=== PATIENT | male | born 1950 | race Caucasian/White ===

== ENCOUNTER 2020-01-05 11:16 | Emergency (ER) | payer OTHER ==
[~2020-01-05] VITALS: Ht 182.9 cm; Wt 113.4 kg
[~2020-01-05 11:16] MED LIST: ASPI81CH PO; ATOR40TA PO; CLIN300 PO; INVOKANA300 MG PO; Janumet 50-1,01 EACH PO; Janumet 50-5001 EACH; LEVO750 PO; Prinivil10 MG PO; Travatan Z5 ML OP
[2020-01-05 12:20] LABS: BASOPHILS ABSOLUTE AUTO 0.04 K/mm3 (0.00-0.23); BASOPHILS PERCENT AUTO 1 % (0-2); EOSINOPHILS ABSOLUTE AUTO 0.01 K/mm3 (0.00-0.68); EOSINOPHILS PERCENT AUTO 0 % (0-6); Hematocrit 48.4 % (37.0-53.0); IMMATURE GRAN ABSOLUTE AUTO 0.05 K/mm3 (0.00-0.10); IMMATURE GRAN PERCENT AUTO 1 % (0-1); LYMPHOCYTES ABSOLUTE AUTO 0.84 K/mm3 (0.84-5.20); LYMPHOCYTES PERCENT AUTO 12 % (21-46); MONOCYTES ABSOLUTE AUTO 0.64 K/mm3 (0.16-1.47); MONOCYTES PERCENT AUTO 9 % (4-13); Mean Corpuscular HGB 30.7 pg (26.0-34.0); Mean Corpuscular HGB Conc 33.1 g/dL (31.5-36.5); Mean Corpuscular Volume 93 fL (80-100); Mean Platelet Volume 9.9 fL (9.1-12.4); NEUTROPHILS ABSOLUTE AUTO 5.49 K/mm3 (1.96-9.15); NEUTROPHILS PERCENT AUTO 78 % (41-73); Platelet Count 216 K/mm3 (150-400); RDW Coefficient Variation 12.6 % (11.7-14.2); RDW Standard Deviation 43.2 fL (35.1-46.3); Red Blood Cell Count 5.22 M/mm3 (4.30-5.90); White Blood Cell Count 7.07 K/mm3 (4.00-11.30)
[2020-01-05 12:39] LABS: Alanine Aminotransfer (ALT/SGP 36 U/L (12-78); Albumin, Blood 3.4 g/dL (3.4-5.0); Albumin/Globulin Ratio 0.9 (0.8-1.8); Alk Phos 90 U/L (50-136); Anion Gap 6 mmol/L (6-16); Aspartate Aminotrans (AST/SGOT 33 U/L (12-37); Blood Urea Nitrogen 17 mg/dL (8-24); Bun/Creatinine Ratio 21.7 (12.0-20.0); CO2, Blood 25 mmol/L (21-32); Calcium, Blood 8.7 mg/dL (8.5-10.1); Chloride, Blood 101 mmol/L (98-108); Creatinine, Blood 0.78 mg/dL (0.60-1.20); Globulin, Blood 3.9 g/dL (2.2-4.0); Glomerular Filtration Rate >60 (60-); Glucose, Blood 160 mg/dL (70-99); Sodium, Blood 132 mmol/L (136-145); Total Protein, Blood 7.3 g/dL (6.4-8.2)
== END 2020-01-05 13:15 | disposition home or self-care (01) ==
LOC: ER 11:16
PROVIDERS: Physician Assistant
DX: L03.116 Cellulitis of left lower limb (principal); E11.621 Type 2 diabetes mellitus with foot ulcer; L97.529 Non-pressure chronic ulcer of other part of left foot with unspecified severity; E11.40 Type 2 diabetes mellitus with diabetic neuropathy, unspecified; Z88.0 Allergy status to penicillin; Z79.82 Long term (current) use of aspirin; Z79.899 Other long term (current) drug therapy
CPT/HCPCS: 36415; 80053; 83605; 85025; 99283

== ENCOUNTER 2022-04-02 17:34 | Emergency (ER) | payer OTHER ==
[~2022-04-02] VITALS: Ht 182.9 cm; Wt 113.4 kg
[2022-04-02 18:41] LABS: BASOPHILS ABSOLUTE AUTO 0.03 K/mm3 (0.00-0.23); BASOPHILS PERCENT AUTO 0 % (0-2); EOSINOPHILS ABSOLUTE AUTO 0.09 K/mm3 (0.00-0.68); EOSINOPHILS PERCENT AUTO 1 % (0-6); Hematocrit 47.5 % (37.0-53.0); Hemoglobin 15.8 g/dL (13.5-17.5); IMMATURE GRAN ABSOLUTE AUTO 0.05 K/mm3 (0.00-0.10); IMMATURE GRAN PERCENT AUTO 0 % (0-1); LYMPHOCYTES ABSOLUTE AUTO 1.64 K/mm3 (0.84-5.20); LYMPHOCYTES PERCENT AUTO 15 % (21-46); MONOCYTES ABSOLUTE AUTO 1.35 K/mm3 (0.16-1.47); MONOCYTES PERCENT AUTO 12 % (4-13); Mean Corpuscular HGB 30.6 pg (26.0-34.0); Mean Corpuscular HGB Conc 33.3 g/dL (31.5-36.5); Mean Corpuscular Volume 92 fL (80-100); Mean Platelet Volume 9.9 fL (9.1-12.4); NEUTROPHILS ABSOLUTE AUTO 8.15 K/mm3 (1.96-9.15); NEUTROPHILS PERCENT AUTO 72 % (41-73); Platelet Count 214 K/mm3 (150-400); RDW Coefficient Variation 13.2 % (11.7-14.2); RDW Standard Deviation 45.1 fL (35.1-46.3); Red Blood Cell Count 5.17 M/mm3 (4.30-5.90); White Blood Cell Count 11.31 K/mm3 (4.00-11.30)
[2022-04-02 19:35] LABS: Albumin, Blood 3.4 g/dL (3.4-5.0); Albumin/Globulin Ratio 0.8 (0.8-1.8); Bilirubin, Total 0.7 mg/dL (0.1-1.0); Bun/Creatinine Ratio 24.2 (12.0-20.0); Creatinine, Blood 0.66 mg/dL (0.60-1.20); Potassium, Blood 4.5 mmol/L (3.5-5.5); Total Protein, Blood 7.4 g/dL (6.4-8.2)
[2022-04-02] MEDS ORDERED: LEVFLO500 PO (22:19)
[2022-04-02] MEDS ORDERED: CLIN150 PO (22:19)
== END 2022-04-02 22:31 | disposition home or self-care (01) ==
LOC: ER 17:34
PROVIDERS: Student in an Organized Health Care Education/Training Program
DX: L03.031 Cellulitis of right toe (principal); E11.9 Type 2 diabetes mellitus without complications; Z88.0 Allergy status to penicillin; Z79.899 Other long term (current) drug therapy; Z79.82 Long term (current) use of aspirin
CPT/HCPCS: 36415; 73630; 80053; 85025; A9270

== ENCOUNTER 2022-04-10 06:09 | Day surgery (SDC) | payer MEDICARE ==
[~2022-04-10] VITALS: Ht 182.9 cm; Wt 110.8 kg
[~2022-04-10 06:09] MED LIST changes: +CLIN150 PO; +LEVFLO500 PO
[2022-04-10] MEDS ORDERED: JARDIANCE10 MG (06:58)
--- NOTE | 2022-04-10 08:06 | NUR ---
04/10/22 0806 FELIX HARDIN PT PLACED ON 10L O2 PER FACE TENT SHORTLY AFTER COMING TO PACU. O2 UPPER 80'S . O2 CURRENTLY 95% ON 10 L
--- NOTE | 2022-04-10 08:24 | NUR ---
04/10/22 0824 FELIX HARDIN FINISHED IV PIGGY BACK- ABX
== END 2022-04-10 09:37 | disposition home or self-care (01) ==
LOC: ORSCSDS 06:09
PROVIDERS: Podiatrist Foot & Ankle Surgery
PROC: 0L8N0ZZ Division of Right Lower Leg Tendon, Open Approach (ICD-10-PCS; principal; 2022-04-10 07:30)
DX: M24.571 Contracture, right ankle (principal); E11.621 Type 2 diabetes mellitus with foot ulcer; E11.65 Type 2 diabetes mellitus with hyperglycemia; Z79.4 Long term (current) use of insulin; E11.42 Type 2 diabetes mellitus with diabetic polyneuropathy; E78.00 Pure hypercholesterolemia, unspecified; I10 Essential (primary) hypertension; Z87.891 Personal history of nicotine dependence; H40.10X0 Unspecified open-angle glaucoma, stage unspecified; Z79.899 Other long term (current) drug therapy; Z79.82 Long term (current) use of aspirin; E66.9 Obesity, unspecified; Z68.34 Body mass index [BMI] 34.0-34.9, adult
CPT/HCPCS: 82947; A9270; J0171; J1100; J1885; J2250; J2405; J2704; J3010; J3370; J7060; J7120

== ENCOUNTER 2022-07-14 10:30 | Emergency (ER) | payer MEDICARE ==
[~2022-07-14] VITALS: Ht 182.9 cm; Wt 114.3 kg
[~2022-07-14 10:30] MED LIST changes: +JARDIANCE10 MG
[2022-07-14 11:04] LABS: BASOPHILS ABSOLUTE AUTO 0.02 K/mm3 (0.00-0.23); BASOPHILS PERCENT AUTO 0 % (0-2); EOSINOPHILS PERCENT AUTO 0 % (0-6); Hematocrit 45.8 % (37.0-53.0); Hemoglobin 15.5 g/dL (13.5-17.5); IMMATURE GRAN ABSOLUTE AUTO 0.03 K/mm3 (0.00-0.10); IMMATURE GRAN PERCENT AUTO 0 % (0-1); LYMPHOCYTES ABSOLUTE AUTO 0.52 K/mm3 (0.84-5.20); LYMPHOCYTES PERCENT AUTO 5 % (21-46); MONOCYTES ABSOLUTE AUTO 1.53 K/mm3 (0.16-1.47); MONOCYTES PERCENT AUTO 14 % (4-13); Mean Corpuscular HGB 29.8 pg (26.0-34.0); Mean Corpuscular HGB Conc 33.8 g/dL (31.5-36.5); Mean Corpuscular Volume 88 fL (80-100); NEUTROPHILS ABSOLUTE AUTO 9.01 K/mm3 (1.96-9.15); NEUTROPHILS PERCENT AUTO 81 % (41-73); Platelet Count 218 K/mm3 (150-400); RDW Coefficient Variation 13.6 % (11.7-14.2); RDW Standard Deviation 43.4 fL (35.1-46.3); White Blood Cell Count 11.11 K/mm3 (4.00-11.30)
[2022-07-14 11:37] LABS: Albumin, Blood 2.8 g/dL (3.4-5.0); Albumin/Globulin Ratio 0.7 (0.8-1.8); Bilirubin, Total 0.9 mg/dL (0.1-1.0); Bun/Creatinine Ratio 17.4 (12.0-20.0); Calcium, Blood 8.6 mg/dL (8.5-10.1); Creatinine, Blood 0.75 mg/dL (0.60-1.20); Globulin, Blood 4.3 g/dL (2.2-4.0); Potassium, Blood 3.6 mmol/L (3.5-5.5); Total Protein, Blood 7.1 g/dL (6.4-8.2)
[2022-07-14 11:57] LABS: Influenza A, PCR NEGATIVE (NEGATIVE); Influenza B, PCR NEGATIVE (NEGATIVE); Resp Syncytial Virus, PCR NEGATIVE (NEGATIVE); SARS-Cov-2 (COVID-19) PCR, MMC NEGATIVE (NEGATIVE)
== END 2022-07-14 14:34 | disposition home or self-care (01) ==
LOC: ER 10:30
PROVIDERS: Student in an Organized Health Care Education/Training Program
DX: B34.9 Viral infection, unspecified (principal); E87.1 Hypo-osmolality and hyponatremia; E11.40 Type 2 diabetes mellitus with diabetic neuropathy, unspecified; Z20.822 Contact with and (suspected) exposure to COVID-19; Z88.0 Allergy status to penicillin; Z79.899 Other long term (current) drug therapy; Z79.82 Long term (current) use of aspirin
CPT/HCPCS: 0241U; 36415; 71046; 71260; 80053; 83880; 84484; 85025; 93005; 93010; Q9967

== ENCOUNTER 2022-07-24 08:40 | Day surgery (SDC) | payer MEDICARE ==
[~2022-07-24] VITALS: Ht 182.9 cm; Wt 106.2 kg
--- NOTE | 2022-07-24 09:37 | NUR ---
[facility] in [facility] warming gown applied. Surgical site prepped with 2% Chlorhexidine cloth wipe. History, Chart, Medications and Allergies reviewed before start of procedure.History, Chart, Medications and Allergies reviewed before start of procedure.Lungs clear T/O to Auscultation. Patient confirms NPO status and agrees with scheduled surgery. Pre-Op teaching done. Pt verbalizes understanding. Patient States Post-Procedure ride home has been arranged. Patient reports completing Chlorhexadine shower X2 prior to admission to hospital.
--- NOTE | 2022-07-24 11:50 | NUR ---
PT AXOX4, ABLE TO REPOSITION SELF IN BED. PT TOLERATING PO FLUIDS AND FOOD, VISITING WITH AT BEDSIDE. PT HAS RIGHT OPERATIVE FOOT WRAPPED IN CHRIS BANDAGE WRAP THAT IS CDI.
--- NOTE | 2022-07-24 12:21 | NUR ---
Discharge instructions reviewed with patient. Patient verbalizes understanding. Copy given to patient to take home. Dressing to procedure site clean, dry, intact with no visible drainage, swelling, erythema or bruising noted. Patient States Post-Procedure ride home has been arranged. Discharged via wheelchair to private car for ride home. ALL BELONGINGS RETURNED TO PATIENT.
== END 2022-07-24 23:07 | disposition home or self-care (01) ==
LOC: ORSCMMR 08:40 → ORD 10:00 → ORSCMMR 23:07
PROVIDERS: Podiatrist Foot & Ankle Surgery
PROC: 0Y6M0ZC Detachment at Right Foot, Partial 3rd Ray, Open Approach (ICD-10-PCS; principal; 2022-07-24 10:00)
DX: L03.115 Cellulitis of right lower limb (principal); I10 Essential (primary) hypertension; E11.9 Type 2 diabetes mellitus without complications; E78.5 Hyperlipidemia, unspecified; Z79.85 Long-term (current) use of injectable non-insulin antidiabetic drugs; E66.9 Obesity, unspecified; Z68.32 Body mass index [BMI] 32.0-32.9, adult; Z79.899 Other long term (current) drug therapy
CPT/HCPCS: 82947; 87070; 87071; 87075; 87077; 87186; 87205; A9270; J1100; J2250; J2405; J2704; J2795; J3010; J7120

== ENCOUNTER 2022-07-25 23:18 | Emergency (ER) | payer MEDICARE ==
[~2022-07-25] VITALS: Ht 182.9 cm; Wt 103.9 kg
== END 2022-07-26 01:45 | disposition home or self-care (01) ==
LOC: ER 23:18
DX: M25.511 Pain in right shoulder (principal); E11.9 Type 2 diabetes mellitus without complications; Z88.0 Allergy status to penicillin; Z79.899 Other long term (current) drug therapy; Z79.82 Long term (current) use of aspirin
CPT/HCPCS: 73030; 93005; 93010; 96372; 99284-25; J1170

== ENCOUNTER 2022-07-26 12:56 | Inpatient (IN) | payer MEDICARE ==
[~2022-07-26] VITALS: Ht 182.9 cm; Wt 111.5 kg
[2022-07-26 14:16] LABS: Albumin, Blood 2.3 g/dL (3.4-5.0); Albumin/Globulin Ratio 0.5 (0.8-1.8); Bun/Creatinine Ratio 17.8 (12.0-20.0); Calcium, Blood 8.5 mg/dL (8.5-10.1); Creatinine, Blood 0.56 mg/dL (0.60-1.20); Globulin, Blood 4.6 g/dL (2.2-4.0); Potassium, Blood 3.8 mmol/L (3.5-5.5); Total Protein, Blood 6.9 g/dL (6.4-8.2)
[2022-07-26 14:37] LABS: Hematocrit 41.6 % (37.0-53.0); Hemoglobin 13.5 g/dL (13.5-17.5); Mean Corpuscular HGB 29.3 pg (26.0-34.0); Mean Corpuscular HGB Conc 32.5 g/dL (31.5-36.5); Mean Corpuscular Volume 90 fL (80-100); Mean Platelet Volume 9.1 fL (9.1-12.4); Platelet Count 483 K/mm3 (150-400); RDW Coefficient Variation 14.4 % (11.7-14.2); RDW Standard Deviation 47.7 fL (35.1-46.3); Red Blood Cell Count 4.61 M/mm3 (4.30-5.90); White Blood Cell Count 23.06 K/mm3 (4.00-11.30)
[2022-07-26 14:49] LABS: Influenza A, PCR NEGATIVE (NEGATIVE); Influenza B, PCR NEGATIVE (NEGATIVE); Resp Syncytial Virus, PCR NEGATIVE (NEGATIVE); SARS-Cov-2 (COVID-19) PCR, MMC NEGATIVE (NEGATIVE)
[2022-07-26 15:34] LABS: Source, Urine Clean Catch
[2022-07-26 15:49] LABS: BAND PERCENT MAN 7 % (0-8); BASOPHILS PERCENT MAN 0 % (0-2); EOSINOPHILS PERCENT MAN 0 % (0-6); LYMPHOCYTES ABSOLUTE MAN 1.38 K/mm3 (0.84-5.20); LYMPHOCYTES PERCENT MAN 6 % (21-46); MONOCYTES ABSOLUTE MAN 1.38 K/mm3 (0.16-1.47); MONOCYTES PERCENT MAN 6 % (4-13); NEUTROPHILS ABSOLUTE MAN 20.75 K/mm3 (1.96-9.15); SEG NEUTROPHILS PERCENT MAN 83 % (41-73); TOTAL CELLS COUNTED 200
[2022-07-26 16:01] LABS: Appearance, Urine Clear (Clear); Bilirubin, Urine Neg (Neg); Blood, Urine 1+ (Neg); Color, Urine Yellow (P-Yellow); Glucose Qualitative, Urine 4+ (Neg); Ketones, Urine 4+ (Neg); Leukocyte Esterase, Urine Neg (Neg); Nitrite, Urine Neg (Neg); Protein, Urine 1+ (Neg); Urobilinogen, Urine NORM (Normal)
[2022-07-26 16:49] LABS: Bacteria Mod /hpf; Red Blood Cells, Urine 0-2 /hpf (0-2); Squamous Epithelial Cells Rare /hpf (Few); White Blood Cells, Urine 0-2 /hpf (0-5)
--- NOTE | 2022-07-27 01:36 | NUR ---
ADMIT NOTE; PT ARRIVED TO ROOM 306 AT 2007 ON 07/26/22 VIA GURNEY FROM ED. PT WAS TRANSFERED FROM [facility] TO HOSPITAL BED VIA SLIDE SHEET. PT ARRIVED ON 2L O2, REPORTED THAT HE HAD PREVIOUSLY BEEN SATING 94%, HOWEVER UPON ARRIVAL PT SATING 100%, O2 REMOVED. PTS BASELINE IS RA. PTS WAS PRESENT AT BEDSIDE AT TIME OF ARRIVAL. 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 PT AXO X4, ABLE TO ANSWER QUESTIONS. PTS R TOE AMPUTATIONS WRAPPED, THEREFORE REPORT OF WHAT THE SURGICAL SIGHT LOOKS LIKE IS PER ED NURSE. PT REPORTED NO PAIN UPON ARRIVAL. PT ORIENTATED TO ROOM, INSTRUCTED ON USE OF CALL LIGHT. BED IS IN THE LOWEST POSITION.
[2022-07-27 04:24] LABS: BASOPHILS ABSOLUTE AUTO 0.04 K/mm3 (0.00-0.23); BASOPHILS PERCENT AUTO 0 % (0-2); EOSINOPHILS PERCENT AUTO 0 % (0-6); Hemoglobin 13.3 g/dL (13.5-17.5); IMMATURE GRAN PERCENT AUTO 1 % (0-1); LYMPHOCYTES ABSOLUTE AUTO 0.83 K/mm3 (0.84-5.20); LYMPHOCYTES PERCENT AUTO 5 % (21-46); MONOCYTES ABSOLUTE AUTO 1.29 K/mm3 (0.16-1.47); MONOCYTES PERCENT AUTO 8 % (4-13); Mean Corpuscular HGB 29.7 pg (26.0-34.0); Mean Corpuscular HGB Conc 32.4 g/dL (31.5-36.5); Mean Corpuscular Volume 92 fL (80-100); Mean Platelet Volume 9.1 fL (9.1-12.4); NEUTROPHILS ABSOLUTE AUTO 14.54 K/mm3 (1.96-9.15); NEUTROPHILS PERCENT AUTO 87 % (41-73); Platelet Count 439 K/mm3 (150-400); RDW Coefficient Variation 14.6 % (11.7-14.2); Red Blood Cell Count 4.48 M/mm3 (4.30-5.90)
[2022-07-27 04:43] LABS: Bun/Creatinine Ratio 26.1 (12.0-20.0); Calcium, Blood 8.2 mg/dL (8.5-10.1); Creatinine, Blood 0.5 mg/dL (0.60-1.20); Potassium, Blood 3.9 mmol/L (3.5-5.5)
--- NOTE | 2022-07-27 06:43 | NUR ---
SHIFT SUMMARY; PT ARRIVED TO FLOOR LAST NIGHT AT 2007. PT IN NO ACUTE DISTRESS. NO ACUTE MEDICAL CHANGES THROUGHOUT THE NIGHT. PT WITH POSSIBLE POST OP INFECTION FROM R TRANSMETATARSAL AMPUTATION 07/24. PT HAS NS RUNNING AT 150 ML/HR CURRENTLY. PT BEING GIVEN VANCO AND ROCEPHIN. PT IS AX0 X4. PT HAS A CONSULT WITH DR. JAMIL TODAY. PT WAS PLEASANT AND COOPERATIVE OF CARE THROUGHOUT THE NIGHT. PT USED CALL LIGHT APPROPRIATELY. PT USES THE URINAL, PT IS A 2 PERSON ASSIST WITH A FFW TO THE BEDSIDE COMMODE, PT PIVOTS ON THE L LEG TO DO SO, PT WITH R SHOULDER PAIN UPON MOVEMENT. PT CURRENLTY RESTING IN BED WITH THE BED IN THE LOWEST POSITION AND THE CALL LIGHT AT BEDSIDE.
--- NOTE | 2022-07-27 18:40 | NUR ---
PATIENT IS ALERT AND ORIENTED AND COOPERATIVE WITH CARE. NO PAIN IN RIGHT FOOT. C/O PAIN 3/10 IN RIGHT SHOULDER. PLAN IS FOR US GUIDED ASPIRATION OF FLUID FROM RIGHT SHOULDER TOMORROW. PATIENT HAD A BM TODAY. 1-2 PA WITH FWW. NON WEIGHTBEARING ON RIGHT FOOT. DR. JAMIL SAW THE PATIENT TODAY AND REDRESSED HIS RIGHT FOOT WOUND. NS AT 150 ML/HR. TYLENOL IS MANAGING HIS PAIN. WILLL CONTINUE TO MONITOR
[2022-07-28 04:40] LABS: Hematocrit 38.3 % (37.0-53.0); Hemoglobin 12.3 g/dL (13.5-17.5); Mean Corpuscular HGB 29.1 pg (26.0-34.0); Mean Corpuscular HGB Conc 32.1 g/dL (31.5-36.5); Mean Corpuscular Volume 91 fL (80-100); Platelet Count 410 K/mm3 (150-400); RDW Coefficient Variation 14.8 % (11.7-14.2); RDW Standard Deviation 49.7 fL (35.1-46.3); Red Blood Cell Count 4.22 M/mm3 (4.30-5.90); White Blood Cell Count 13.41 K/mm3 (4.00-11.30)
[2022-07-28 05:02] LABS: Vancomycin, Trough 6.7 ug/mL (5.0-10.0)
[2022-07-28 05:10] LABS: Albumin, Blood 1.8 g/dL (3.4-5.0); Anion Gap 8 mmol/L (6-16); Blood Urea Nitrogen 12 mg/dL (8-24); Bun/Creatinine Ratio 24.8 (12.0-20.0); CO2, Blood 24 mmol/L (21-32); Calcium, Blood 7.9 mg/dL (8.5-10.1); Chloride, Blood 105 mmol/L (98-108); Creatinine, Blood 0.48 mg/dL (0.60-1.20); Glomerular Filtration Rate 108 (60-); Glucose, Blood 124 mg/dL (70-99); Potassium, Blood 3.6 mmol/L (3.5-5.5); Sodium, Blood 137 mmol/L (136-145)
--- NOTE | 2022-07-28 16:39 | NUR ---
SHIFT SUMMARY PATIENT MEDICATED FOR PAIN X1, PATIENT DENIES NAUSEA AND SHORTNESS OF BREATH. PATIENT IS A 1P WITH A FWW. PATIENT IS NWB ON THE RIGHT FOOT. PATIENT HAS AT BEDSIDE FOR MOST OF SHIFT. PATIENT SLEPT ON AND OFF. DR. CADET SAW PATIENT, CHANGED BANDAGE, NEW ORDERS FOR DAILY DRY DRESSING CHANGES. ULTRASOUND CONSULTED FOR POSSIBLE ASPIRATION, NOT ENOUGH FLUID IN SHOULDER. PATIENT REPORTS SHOULDER FEELING BETTER TODAY, MORE RANGE OF MOTION. PATIENT IS EATING AND DRINKING WELL. PATIENT IS VERY PLEASANT AND COOPERATIVE WITH CARE.
--- NOTE | 2022-07-29 04:42 | NUR ---
SUMMARY NO NEW ISSUE NOTED. DR CADET CHANGED DRESSING TODAY. PT PAIN MANAGED WELL WITH TYLENOL. PT HAD A SHOWER AND REPORTS FEELING BETTER. PT HAS BEEN VOIDING WELL AND TAKING IN PO FLUIDS. PT SLEEPING WELL AND IN NO DISTRESS. CALL LIGHT IN REACH.
[2022-07-29 05:39] LABS: Vancomycin, Trough 8.2 ug/mL (5.0-10.0)
--- NOTE | 2022-07-29 13:27 | NUR ---
PATIENT TO [facility]ART [facility] VIA W/C WITH HEART CENTER RN.
--- NOTE | 2022-07-29 17:05 | NUR ---
REPORT CALLED TO LISSET JOSEPH RN IN PCU
--- NOTE | 2022-07-29 17:23 | NUR ---
Shift Summary Pt has been resting in bed since arrival. Pt has stated an understanding of post-operative activity restrictions and has made no attempts to move. Left groin site is clean, dry, intact, non-tender, and with no hematoma palpated. Pt stated a 3/10 pain to the right shoulder and a 2/10 pain to the right foot. Right lower extremity distal pulses are present, posterior tibial is palpable and strong, dorsalis pedis is easily located with doppler. Vital signs have been stable and no acute changes in condition occurred.
--- NOTE | 2022-07-29 19:38 | NUR ---
CARE ASSUMPTION: PATIENT A&O, GROIN SITE C/D/I W/O TENDERNESS OR HEMATOMA. BLE PULSES BY DOPPLER. BED ELEVATED 10-DEGREES. R FOOT DRESSING C/D/I. CALL LIGHT IN REACH.
--- NOTE | 2022-07-30 05:20 | NUR ---
SHIFT SUMMARY: ANGIO SITE C/D/I SANS HEMATOMA, TENDERNESS, OR OOZING. R FOOT DRESSING C/D/I. PATIENT VSS ON RA. DENIES CHEST PAIN OR SOB - HAS CHRONIC SHOULDER PAIN. MEDICATED PER EMAR. BED LOW AND MAINTAINED HOB <20* PER ORDERS. PLEASANT AND COOPERATIVE WITH CARE. CALL LIGHT IN REACH AND CALL APPROPRIATELY. WILL CONTINUE TO MONITOR UNTIL REPORT TO DAY RN.
[2022-07-30] MEDS ORDERED: OXYC5 PO (12:36)
[2022-07-30 12:37] LABS: BASOPHILS ABSOLUTE AUTO 0.04 K/mm3 (0.00-0.23); BASOPHILS PERCENT AUTO 0 % (0-2); EOSINOPHILS ABSOLUTE AUTO 0.13 K/mm3 (0.00-0.68); EOSINOPHILS PERCENT AUTO 1 % (0-6); Hemoglobin 12.6 g/dL (13.5-17.5); IMMATURE GRAN ABSOLUTE AUTO 0.05 K/mm3 (0.00-0.10); IMMATURE GRAN PERCENT AUTO 1 % (0-1); LYMPHOCYTES ABSOLUTE AUTO 1.17 K/mm3 (0.84-5.20); LYMPHOCYTES PERCENT AUTO 12 % (21-46); MONOCYTES ABSOLUTE AUTO 0.93 K/mm3 (0.16-1.47); MONOCYTES PERCENT AUTO 10 % (4-13); Mean Corpuscular HGB 29.6 pg (26.0-34.0); Mean Corpuscular HGB Conc 32.3 g/dL (31.5-36.5); Mean Corpuscular Volume 92 fL (80-100); Mean Platelet Volume 9.4 fL (9.1-12.4); NEUTROPHILS ABSOLUTE AUTO 7.52 K/mm3 (1.96-9.15); NEUTROPHILS PERCENT AUTO 76 % (41-73); Platelet Count 389 K/mm3 (150-400); RDW Coefficient Variation 14.6 % (11.7-14.2); RDW Standard Deviation 49.3 fL (35.1-46.3); Red Blood Cell Count 4.25 M/mm3 (4.30-5.90); White Blood Cell Count 9.84 K/mm3 (4.00-11.30)
[2022-07-30] MEDS ORDERED: XARELTO20 MG PO (12:38)
[2022-07-30] MEDS ORDERED: XARELTO15 M1 PO (12:38)
[2022-07-30] MEDS ORDERED: VISBIOME 112.51 EACH PO (12:39)
[2022-07-30] MEDS ORDERED: LEVFLO500 PO (12:39)
== END 2022-07-30 13:40 | disposition home health service (06) | DRG 981 ==
LOC: ER 12:56 → PCU 18:16 → MEDS 18:16 → PCU 07-29 14:41
PROVIDERS: Internal Medicine; Nurse Practitioner Acute Care; Podiatrist Foot & Ankle Surgery; Student in an Organized Health Care Education/Training Program; ADMIT Internal Medicine
PROC: 3E03329 Introduction of Other Anti-infective into Peripheral Vein, Percutaneous Approach (ICD-10-PCS; principal; 2022-07-26)
PROC: B41G1ZZ Fluoroscopy of Left Lower Extremity Arteries using Low Osmolar Contrast (ICD-10-PCS; 2022-07-29)
PROC: 047P3ZZ Dilation of Right Anterior Tibial Artery, Percutaneous Approach (ICD-10-PCS; 2022-07-29)
PROC: 047S3ZZ Dilation of Left Posterior Tibial Artery, Percutaneous Approach (ICD-10-PCS; 2022-07-29)
DX: T87.43 Infection of amputation stump, right lower extremity (principal); A41.4 Sepsis due to anaerobes; I82.441 Acute embolism and thrombosis of right tibial vein; E87.1 Hypo-osmolality and hyponatremia; L03.115 Cellulitis of right lower limb; M86.8X7 Other osteomyelitis, ankle and foot; M00.871 Arthritis due to other bacteria, right ankle and foot; T81.44XA Sepsis following a procedure, initial encounter; Z20.822 Contact with and (suspected) exposure to COVID-19; I10 Essential (primary) hypertension; E78.5 Hyperlipidemia, unspecified; M19.011 Primary osteoarthritis, right shoulder; I82.461 Acute embolism and thrombosis of right calf muscular vein; E86.1 Hypovolemia; E11.40 Type 2 diabetes mellitus with diabetic neuropathy, unspecified; E11.51 Type 2 diabetes mellitus with diabetic peripheral angiopathy without gangrene; B96.4 Proteus (mirabilis) (morganii) as the cause of diseases classified elsewhere; Z89.411 Acquired absence of right great toe; Z89.431 Acquired absence of right foot; Z88.0 Allergy status to penicillin; Z88.7 Allergy status to serum and vaccine; Z79.82 Long term (current) use of aspirin; Z79.899 Other long term (current) drug therapy
CPT/HCPCS: 0241U; 36415; 37228; 37232; 71046; 73620; 75625; 75716; 75774; 76937; 80048; 80053; 80069; 80202; 81001; 82947; 83605; 85025; 85027; 85347; 87040; 87077; 87186; 93005; 93010; 93926; 93970; 94760; 96365; 96366; 96367; 99152; 99153; 99285-25; A9270; C1725; C1769; C1887; C1894; J0692; J0696; J1644; J1650; J1885; J2250; J3010; J3370; J7030; J7040; J7050; Q9967

== ENCOUNTER 2022-09-08 02:35 | Day surgery (SDC) | payer MEDICARE ==
[~2022-09-08 02:35] MED LIST changes: +OXYC5 PO; +VISBIOME 112.51 EACH PO; +XARELTO15 M1 PO; +XARELTO20 MG PO
== END 2022-09-08 23:00 | disposition home or self-care (01) ==
LOC: WOUND 02:35
DX: E11.622 Type 2 diabetes mellitus with other skin ulcer (principal); E11.621 Type 2 diabetes mellitus with foot ulcer; L97.322 Non-pressure chronic ulcer of left ankle with fat layer exposed; E11.69 Type 2 diabetes mellitus with other specified complication; M86.171 Other acute osteomyelitis, right ankle and foot; E11.51 Type 2 diabetes mellitus with diabetic peripheral angiopathy without gangrene; E11.43 Type 2 diabetes mellitus with diabetic autonomic (poly)neuropathy; Z89.431 Acquired absence of right foot
CPT/HCPCS: A9270; G0463

== ENCOUNTER 2022-09-15 02:08 | Day surgery (SDC) | payer MEDICARE | END 2022-09-15 22:42 | disposition home or self-care (01) | LOC: WOUND 02:08 | DX: E11.622 Type 2 diabetes mellitus with other skin ulcer (principal); L97.322 Non-pressure chronic ulcer of left ankle with fat layer exposed; E11.42 Type 2 diabetes mellitus with diabetic polyneuropathy; Z89.431 Acquired absence of right foot; I87.2 Venous insufficiency (chronic) (peripheral); E11.51 Type 2 diabetes mellitus with diabetic peripheral angiopathy without gangrene | CPT/HCPCS: G0463 ==

== ENCOUNTER 2022-09-29 01:24 | Day surgery (SDC) | payer MEDICARE | END 2022-09-29 22:35 | disposition home or self-care (01) | LOC: WOUND 01:24 | DX: T87.43 Infection of amputation stump, right lower extremity (principal); Y83.8 Other surgical procedures as the cause of abnormal reaction of the patient, or of later complication, without mention of misadventure at the time of the procedure; E11.69 Type 2 diabetes mellitus with other specified complication; M86.171 Other acute osteomyelitis, right ankle and foot; E11.51 Type 2 diabetes mellitus with diabetic peripheral angiopathy without gangrene; E11.43 Type 2 diabetes mellitus with diabetic autonomic (poly)neuropathy | CPT/HCPCS: G0463 ==

== ENCOUNTER 2022-10-13 01:21 | Day surgery (SDC) | payer MEDICARE | END 2022-10-13 22:44 | disposition home or self-care (01) | LOC: WOUND 01:21 | DX: E11.622 Type 2 diabetes mellitus with other skin ulcer (principal); L97.909 Non-pressure chronic ulcer of unspecified part of unspecified lower leg with unspecified severity; M86.171 Other acute osteomyelitis, right ankle and foot; R77.0 Abnormality of albumin; I73.9 Peripheral vascular disease, unspecified; E11.43 Type 2 diabetes mellitus with diabetic autonomic (poly)neuropathy | CPT/HCPCS: A9270; G0463 ==